=== PATIENT | male | born 1980 | race Caucasian/White ===

== ENCOUNTER → 2021-03-01 | Day surgery (SDC) | payer OTHER | END | disposition home or self-care (01) | LOC: OR 06:12 | DX: S46.212A Strain of muscle, fascia and tendon of other parts of biceps, left arm, initial encounter (principal); X58.XXXA Exposure to other specified factors, initial encounter | CPT/HCPCS: 73080; C1713; J0171; J0690; J1100; J2001; J2250; J2370; J2405; J2704; J2795; J3010; J7120 ==